=== PATIENT | male | born 1975 | race Caucasian/White ===

== ENCOUNTER 2021-04-08 16:36 | Emergency (ER) | payer MEDICAID ==
[~2021-04-08] VITALS: Ht 175.3 cm; Wt 113.6 kg
[2021-04-08 17:21] LABS: GLUCOSE,POINT OF CARE 232 MG/DL (70-110)
[2021-04-08 22:16] VITALS: BP 129/74
== END 2021-04-08 22:17 | disposition home or self-care (01) ==
LOC: EDBD → EMS 16:40
DX: R41.82 Altered mental status, unspecified (principal); F10.229 Alcohol dependence with intoxication, unspecified; F17.210 Nicotine dependence, cigarettes, uncomplicated; Y90.8 Blood alcohol level of 240 mg/100 ml or more
CPT/HCPCS: 36415; 82962; 99285; G0480; 82948

== ENCOUNTER 2021-04-09 10:39 | Inpatient (IN) | payer MEDICAID ==
[~2021-04-09] VITALS: Ht 172.7 cm; Wt 110.7 kg
[2021-04-09 11:10] LABS: BASOPHILS % (AUTO) 0.5 % (0.0-2.0); EOSINOPHILS % (AUTO) 0.3 % (1.0-6.0); HEMOGLOBIN 13.2 g/dL (13.5-17.5); LYMPHOCYTES # (AUTO) 2.7 K/uL (1.0-4.8); MEAN CORPUSCULAR HEMOGLOBIN 27.3 pg (26.0-34.0); MEAN CORPUSCULAR VOLUME 80 fL (80-100); MONOCYTES # (AUTO) 0.6 K/uL (0.1-1.0); MONOCYTES % (AUTO) 6.4 % (2.0-9.0); NEUTROPHILS # (AUTO) 5.3 K/uL (1.8-7.7); NEUTROPHILS % (AUTO) 61.8 % (40.0-70.0); PLATELET COUNT (AUTO) 321 K/uL (150-450); RED BLOOD CELL COUNT(AUTO) 4.86 MIL/uL (4.50-5.90); RED CELL DISTRIBUTION WIDTH 16.4 % (11.5-14.5)
[2021-04-09 11:19] LABS: ANION GAP 18 mmol/L (8-16); CALCIUM, TOTAL 7.7 mg/dL (8.8-10.5); CARBON DIOXIDE 21 mmol/L (22-29); CHLORIDE 101 mmol/L (98-107); CREATININE 0.57 mg/dL (0.60-1.30); GLOMERULAR FILTR. RATE CALC > 60 mL/min (>60); GLUCOSE,RANDOM 231 mg/dL (70-110); POTASSIUM 3.4 mmol/L (3.5-5.1); SODIUM SERUM 140 mmol/L (136-145); UREA NITROGEN, BLOOD 4 mg/dL (7-18)
[2021-04-09 11:25] LABS: ALANINE AMINOTRANSFERASE 61 U/L (12-78); ALBUMIN 3.3 g/dL (3.4-5.0); ALKALINE PHOSPHATASE 73 U/L (46-116); ASPARTATE AMINOTRANSFERASE 74 U/L (15-37); BILIRUBIN,TOTAL 0.4 mg/dL (0.1-1.0)
[2021-04-09] MEDS ORDERED: POTASSIUM CHLORIDE 10% 40 MEQ/30 ML LIQUID UDCUP PO ONE (15:00)
[2021-04-09 18:10] LABS: COVID AG,FIA SOURCE NASOPHARYNGEAL
[2021-04-09] MEDS ORDERED: LORazepam 2 MG TABLET PO ONE (18:15)
[2021-04-09] MEDS ORDERED: ZOLPIDEM TARTRATE 10 MG TABLET PO PRN (19:00)
[2021-04-09] MEDS ORDERED: LOPERAMIDE HCL 2 MG CAPSULE PO PRN (19:00)
[2021-04-09] MEDS ORDERED: CYANOCOBALAMIN 1,000 MCG/ML VIAL IM ONE (19:00)
[2021-04-09] MEDS ORDERED: HydrOXYzine PAMOATE 50 MG CAPSULE PO PRN (19:00)
[2021-04-09] MEDS ORDERED: LORazepam 2 MG TABLET PO PRN (19:00)
[2021-04-09] MEDS ORDERED: GuaiFENesin/D-METHORPHAN [SUGAR-FREE] 200-20MG/10 ML SYRUP UDCUP PO PRN (19:00)
[2021-04-09] MEDS: THIAMINE 100 MG TABLET PO SCH (20:48)
[2021-04-09] MEDS: LORazepam 2 MG TABLET PO SCH (20:48)
[2021-04-09 22:03] VITALS: BP 151/80
[2021-04-09] MEDS ORDERED: GLUCAGON,HUMAN RECOMBINANT 1 MG VIAL IM PRN (22:30)
[2021-04-09 22:41] LABS: GLUCOMETER DEV NAME(LOC) BV2S.; GLUCOSE,POINT OF CARE 186 MG/DL (70-110)
[2021-04-09] MEDS ORDERED: PNEUMOCOCCAL VACCINE POLYVALENT 0.5 ML VIAL [PPSV23] IM. ONE (22:45)
[2021-04-09 23:06] VITALS: BP 147/86
[2021-04-10] VITALS (9 sets, daily range): BP systolic 116–140; BP diastolic 72–96
[2021-04-10 06:22] LABS: GLUCOMETER DEV NAME(LOC) BV2S.; GLUCOSE,POINT OF CARE 180 MG/DL (70-110)
[2021-04-10] MEDS: MetFORMIN HCL 500 MG TABLET PO SCH ×2 (06:32→16:45)
[2021-04-10] MEDS: INSULIN LISPRO 100 UNITS/ML SQ PRN ×4 (06:33→20:28)
[2021-04-10] MEDS: LORazepam 2 MG TABLET PO PRN (07:15)
[2021-04-10] MEDS ORDERED: VERAPAMIL HCL 120 MG TABLET PO SCH (09:00)
[2021-04-10] MEDS: ASPIRIN 81 MG CHEWABLE TABLET PO SCH (09:02)
[2021-04-10] MEDS: THIAMINE 100 MG TABLET PO SCH ×2 (09:02→16:45)
[2021-04-10] MEDS: OMEPRAZOLE 20 MG CAPSULE PO SCH (09:03)
[2021-04-10] MEDS: MULTIVITAMINS WITH MINERALS, THERAPEUTIC TABLET PO SCH (09:03)
[2021-04-10] MEDS: FOLIC ACID 1 MG TABLET PO SCH (09:03)
[2021-04-10] MEDS: LISINOPRIL 10 MG TABLET PO SCH (09:03)
[2021-04-10] MEDS ORDERED: VERAPAMIL HCL 120 MG ER TABLET PO SCH (09:09)
[2021-04-10] MEDS: VERAPAMIL HCL 120 MG ER TABLET PO SCH (09:39)
[2021-04-10] MEDS ORDERED: QUET300T19 PO (10:53)
[2021-04-10] MEDS ORDERED: MIRT-93 PO (10:53)
[2021-04-10] MEDS ORDERED: LITH300C3 PO (10:53)
[2021-04-10] MEDS: LORazepam 2 MG TABLET PO SCH ×3 (12:03→20:17)
[2021-04-10 13:36] LABS: GLUCOMETER DEV NAME(LOC) BV2S.; GLUCOSE,POINT OF CARE 221 MG/DL (70-110)
[2021-04-10] MEDS: LITHIUM CARBONATE 300 MG CAPSULE PO SCH (16:45)
[2021-04-10 17:06] LABS: GLUCOMETER DEV NAME(LOC) BV2S.; GLUCOSE,POINT OF CARE 263 MG/DL (70-110)
[2021-04-10] MEDS: MIRTAZAPINE 30 MG TABLET PO SCH (20:17)
[2021-04-10] MEDS: SIMVASTATIN 10 MG TABLET PO SCH (20:17)
[2021-04-10] MEDS: QUEtiapine FUMARATE 300 MG TABLET PO SCH (20:17)
[2021-04-10 20:51] LABS: GLUCOMETER DEV NAME(LOC) BV2S.; GLUCOSE,POINT OF CARE 249 MG/DL (70-110)
[2021-04-11 00:42] VITALS: BP 127/75
[2021-04-11] MEDS: LORazepam 2 MG TABLET PO PRN ×2 (00:51→05:07)
[2021-04-11 01:00] VITALS: BP 127/75
[2021-04-11 06:26] LABS: GLUCOMETER DEV NAME(LOC) BV2S.; GLUCOSE,POINT OF CARE 278 MG/DL (70-110)
[2021-04-11] MEDS: INSULIN LISPRO 100 UNITS/ML SQ PRN ×4 (06:31→20:38)
[2021-04-11] MEDS: MetFORMIN HCL 500 MG TABLET PO SCH ×2 (06:31→16:28)
[2021-04-11 08:00] VITALS: BP 145/96
[2021-04-11] MEDS: FOLIC ACID 1 MG TABLET PO SCH (08:59)
[2021-04-11] MEDS: OMEPRAZOLE 20 MG CAPSULE PO SCH (08:59)
[2021-04-11] MEDS: LORazepam 2 MG TABLET PO SCH ×4 (08:59→20:31)
[2021-04-11] MEDS: LITHIUM CARBONATE 300 MG CAPSULE PO SCH ×2 (08:59→16:29)
[2021-04-11] MEDS: ASPIRIN 81 MG CHEWABLE TABLET PO SCH (08:59)
[2021-04-11] MEDS: MULTIVITAMINS WITH MINERALS, THERAPEUTIC TABLET PO SCH (09:00)
[2021-04-11] MEDS: VERAPAMIL HCL 120 MG ER TABLET PO SCH (09:00)
[2021-04-11] MEDS: THIAMINE 100 MG TABLET PO SCH ×2 (09:00→16:28)
[2021-04-11] MEDS: LISINOPRIL 10 MG TABLET PO SCH (09:00)
[2021-04-11 09:21] VITALS: BP 145/96
[2021-04-11] MEDS ORDERED: MAGNESIUM HYDROXIDE SUSPENSION 30 ML UDCUP PO PRN (10:15)
[2021-04-11] MEDS ORDERED: ALBUTEROL SULFATE HFA 90 MCG/PUFF 8 GM INHALER IH PRN (10:15)
[2021-04-11] MEDS ORDERED: DOCUSATE SODIUM 100 MG CAPSULE PO PRN (10:15)
[2021-04-11] MEDS ORDERED: PETROLATUM,WHITE 28 GM JELLY TP PRN (10:15)
[2021-04-11] MEDS ORDERED: MAG HYDROX/AL HYDROX/SIMETH ES 30 ML SUSPENSION UDCUP PO PRN (10:15)
[2021-04-11] MEDS ORDERED: GuaiFENesin/D-METHORPHAN [SUGAR-FREE] 200-20MG/10 ML SYRUP UDCUP PO PRN (10:15)
[2021-04-11] MEDS ORDERED: ONDANSETRON HCL 4 MG TABLET PO PRN (10:15)
[2021-04-11] MEDS ORDERED: CloNIDine HCL 0.1 MG TABLET PO PRN (10:15)
[2021-04-11] MEDS ORDERED: NICOTINE 14 MG/24 HOUR PATCH TD PRN (10:15)
[2021-04-11] MEDS ORDERED: LOPERAMIDE HCL 2 MG CAPSULE PO PRN (10:15)
[2021-04-11] MEDS: IBUPROFEN 400 MG TABLET PO PRN (10:20)
[2021-04-11 11:46] LABS: GLUCOMETER DEV NAME(LOC) BV2S.; GLUCOSE,POINT OF CARE 262 MG/DL (70-110)
[2021-04-11 16:09] VITALS: BP 139/78
[2021-04-11 16:36] LABS: GLUCOMETER DEV NAME(LOC) BV2S.; GLUCOSE,POINT OF CARE 260 MG/DL (70-110)
[2021-04-11 17:10] VITALS: BP 138/78
[2021-04-11] MEDS ORDERED: INSULIN LISPRO 100 UNITS/ML SQ PRN (20:00)
[2021-04-11] MEDS ORDERED: DEXTROSE 50%-WATER 25 GM/50 ML SYRINGE IVP PRN (20:00)
[2021-04-11] MEDS ORDERED: LISI10TA24 PO (20:01)
[2021-04-11] MEDS ORDERED: METF-446 PO (20:01)
[2021-04-11] MEDS ORDERED: INSLAN SQ (20:01)
[2021-04-11] MEDS ORDERED: ALOG25TA2 PO (20:01)
[2021-04-11 20:21] LABS: GLUCOMETER DEV NAME(LOC) BV2S.; GLUCOSE,POINT OF CARE 239 MG/DL (70-110)
[2021-04-11] MEDS: MIRTAZAPINE 30 MG TABLET PO SCH (20:30)
[2021-04-11] MEDS: SIMVASTATIN 10 MG TABLET PO SCH (20:30)
[2021-04-11] MEDS: QUEtiapine FUMARATE 300 MG TABLET PO SCH (20:31)
[2021-04-12] VITALS (7 sets, daily range): BP systolic 119–141; BP diastolic 64–94
[2021-04-12] MEDS: LORazepam 2 MG TABLET PO PRN (00:19)
[2021-04-12] MEDS: IBUPROFEN 400 MG TABLET PO PRN ×2 (00:19→16:18)
[2021-04-12] MEDS: ACETAMINOPHEN 325 MG TABLET PO PRN ×2 (06:05→16:18)
[2021-04-12] MEDS: INSULIN LISPRO 100 UNITS/ML SQ PRN ×4 (06:14→21:53)
[2021-04-12 06:20] LABS: GLUCOMETER DEV NAME(LOC) BV2S.; GLUCOSE,POINT OF CARE 263 MG/DL (70-110)
[2021-04-12] MEDS: MetFORMIN HCL 500 MG TABLET PO SCH ×2 (06:42→16:18)
[2021-04-12] MEDS ORDERED: LORazepam 1 MG TABLET PO PRN (07:00)
[2021-04-12 07:30] LABS: HEMOGLOBIN A1C 10.7 % (3.8-5.6)
[2021-04-12 07:45] LABS: CHOL/HDL RATIO 2.7 (4.2-7.3); THYROID STIMULATING HORMONE 2.17 uIU/mL (0.36-3.74)
[2021-04-12] MEDS: LITHIUM CARBONATE 300 MG CAPSULE PO SCH ×2 (08:41→16:18)
[2021-04-12] MEDS: MULTIVITAMINS WITH MINERALS, THERAPEUTIC TABLET PO SCH (08:41)
[2021-04-12] MEDS: VERAPAMIL HCL 120 MG ER TABLET PO SCH (08:41)
[2021-04-12] MEDS: LORazepam 1 MG TABLET PO SCH ×4 (08:42→20:41)
[2021-04-12] MEDS: LISINOPRIL 10 MG TABLET PO SCH (08:42)
[2021-04-12] MEDS: THIAMINE 100 MG TABLET PO SCH ×2 (08:42→16:18)
[2021-04-12] MEDS: FOLIC ACID 1 MG TABLET PO SCH (08:42)
[2021-04-12] MEDS: ASPIRIN 81 MG CHEWABLE TABLET PO SCH (08:43)
[2021-04-12] MEDS: OMEPRAZOLE 20 MG CAPSULE PO SCH (08:43)
[2021-04-12 11:51] LABS: GLUCOMETER DEV NAME(LOC) BV2S.; GLUCOSE,POINT OF CARE 233 MG/DL (70-110)
[2021-04-12 16:46] LABS: GLUCOMETER DEV NAME(LOC) BV2S.; GLUCOSE,POINT OF CARE 270 MG/DL (70-110)
[2021-04-12] MEDS: MIRTAZAPINE 30 MG TABLET PO SCH (20:41)
[2021-04-12] MEDS: SIMVASTATIN 10 MG TABLET PO SCH (20:41)
[2021-04-12] MEDS: QUEtiapine FUMARATE 300 MG TABLET PO SCH (20:41)
[2021-04-12 21:56] LABS: GLUCOMETER DEV NAME(LOC) BV2S.; GLUCOSE,POINT OF CARE 235 MG/DL (70-110)
[2021-04-13 00:17] VITALS: BP 110/80
[2021-04-13] MEDS: IBUPROFEN 400 MG TABLET PO PRN ×2 (00:23→09:05)
[2021-04-13] MEDS: LORazepam 2 MG TABLET PO PRN ×3 (00:23→13:12)
[2021-04-13 01:27] VITALS: BP 110/80
[2021-04-13] MEDS: INSULIN LISPRO 100 UNITS/ML SQ PRN ×4 (06:45→20:43)
[2021-04-13] MEDS: MetFORMIN HCL 500 MG TABLET PO SCH ×2 (06:47→16:30)
[2021-04-13 06:51] LABS: GLUCOMETER DEV NAME(LOC) BV2S.; GLUCOSE,POINT OF CARE 230 MG/DL (70-110)
[2021-04-13 07:24] LABS: APPEARANCE,URINE CLEAR (CLEAR); BILIRUBIN,URINE NEGATIVE (NEGATIVE); GLUCOSE, URINE (UA) >=1000 mg/dL (NEGATIVE); KETONES,URINE NEGATIVE (NEGATIVE); LEUKOCYTE ESTERASE ,URINE NEGATIVE (NEGATIVE); NITRATE,URINE NEGATIVE (NEGATIVE); OCCULT BLOOD,URINE NEGATIVE (NEGATIVE); PROTEIN,URINE NEGATIVE (NEGATIVE)
[2021-04-13 07:35] LABS: AMPHET/METH SCREEN,URINE NEGATIVE (NEGATIVE); BARBITURATE SCREEN, URINE NEGATIVE (NEGATIVE); BENZODIAZEPINES SCREEN,URINE POSITIVE (NEGATIVE); CANNABINOID SCREEN,URINE NEGATIVE (NEGATIVE); COCAINE SCREEN,URINE NEGATIVE (NEGATIVE); METHADONE SCREEN, URINE NEGATIVE (NEGATIVE); OPIATE SCREEN,URINE NEGATIVE (NEGATIVE)
[2021-04-13 07:41] LABS: PHENCYCLIDINE SCREEN,URINE NEGATIVE (NEGATIVE)
[2021-04-13 07:44] LABS: BACTERIA,URINE None Seen /HPF (None Seen); RBC,URINE None Seen /HPF (0-2); WBC,URINE None Seen /HPF (0-5)
[2021-04-13 08:09] VITALS: BP 119/64
[2021-04-13 08:37] VITALS: BP 119/64
[2021-04-13] MEDS: LITHIUM CARBONATE 300 MG CAPSULE PO SCH ×2 (09:06→16:30)
[2021-04-13] MEDS: LISINOPRIL 10 MG TABLET PO SCH (09:06)
[2021-04-13] MEDS: OMEPRAZOLE 20 MG CAPSULE PO SCH (09:06)
[2021-04-13] MEDS: ASPIRIN 81 MG CHEWABLE TABLET PO SCH (09:07)
[2021-04-13] MEDS: VERAPAMIL HCL 120 MG ER TABLET PO SCH (09:07)
[2021-04-13] MEDS: FOLIC ACID 1 MG TABLET PO SCH (09:07)
[2021-04-13] MEDS: THIAMINE 100 MG TABLET PO SCH ×2 (09:07→16:29)
[2021-04-13] MEDS: MULTIVITAMINS WITH MINERALS, THERAPEUTIC TABLET PO SCH (09:08)
[2021-04-13 12:41] LABS: GLUCOMETER DEV NAME(LOC) BV2S.; GLUCOSE,POINT OF CARE 266 MG/DL (70-110)
[2021-04-13 16:05] VITALS: BP 128/84
[2021-04-13 16:29] VITALS: BP 128/84
[2021-04-13 16:36] LABS: GLUCOMETER DEV NAME(LOC) BV2S.; GLUCOSE,POINT OF CARE 244 MG/DL (70-110)
[2021-04-13] MEDS: LORazepam 1 MG TABLET PO PRN (18:40)
[2021-04-13] MEDS: SIMVASTATIN 10 MG TABLET PO SCH (20:30)
[2021-04-13 20:31] LABS: GLUCOMETER DEV NAME(LOC) BV2S.; GLUCOSE,POINT OF CARE 287 MG/DL (70-110)
[2021-04-13] MEDS: MIRTAZAPINE 30 MG TABLET PO SCH (20:31)
[2021-04-13] MEDS: QUEtiapine FUMARATE 300 MG TABLET PO SCH (20:31)
[2021-04-14 00:55] VITALS: BP 115/87
[2021-04-14] MEDS: LORazepam 1 MG TABLET PO PRN ×2 (01:10→06:45)
[2021-04-14] MEDS: IBUPROFEN 400 MG TABLET PO PRN ×2 (01:10→13:37)
[2021-04-14 06:20] VITALS: BP 125/88
[2021-04-14 06:36] LABS: GLUCOMETER DEV NAME(LOC) BV2S.; GLUCOSE,POINT OF CARE 277 MG/DL (70-110)
[2021-04-14] MEDS: INSULIN LISPRO 100 UNITS/ML SQ PRN ×4 (06:44→21:05)
[2021-04-14] MEDS: MetFORMIN HCL 500 MG TABLET PO SCH ×2 (06:45→16:31)
[2021-04-14] MEDS: ACETAMINOPHEN 325 MG TABLET PO PRN (06:46)
[2021-04-14 08:11] VITALS: BP 138/87
[2021-04-14] MEDS: ASPIRIN 81 MG CHEWABLE TABLET PO SCH (08:25)
[2021-04-14] MEDS: THIAMINE 100 MG TABLET PO SCH ×2 (08:25→16:31)
[2021-04-14] MEDS: LITHIUM CARBONATE 300 MG CAPSULE PO SCH ×2 (08:25→16:31)
[2021-04-14] MEDS: OMEPRAZOLE 20 MG CAPSULE PO SCH (08:25)
[2021-04-14] MEDS: FOLIC ACID 1 MG TABLET PO SCH (08:26)
[2021-04-14] MEDS: LISINOPRIL 10 MG TABLET PO SCH (08:26)
[2021-04-14] MEDS: VERAPAMIL HCL 120 MG ER TABLET PO SCH (08:26)
[2021-04-14] MEDS: MULTIVITAMINS WITH MINERALS, THERAPEUTIC TABLET PO SCH (08:26)
[2021-04-14 10:09] VITALS: BP 132/87
[2021-04-14 10:16] LABS: GLUCOMETER DEV NAME(LOC) POC.BV
[2021-04-14] MEDS: LORazepam 2 MG TABLET PO PRN ×3 (11:25→20:38)
[2021-04-14 11:36] LABS: GLUCOMETER DEV NAME(LOC) BV2S.; GLUCOSE,POINT OF CARE 284 MG/DL (70-110)
[2021-04-14 16:07] VITALS: BP 114/69
[2021-04-14 16:46] LABS: GLUCOMETER DEV NAME(LOC) BV2S.; GLUCOSE,POINT OF CARE 285 MG/DL (70-110)
[2021-04-14] MEDS: QUEtiapine FUMARATE 300 MG TABLET PO SCH (20:33)
[2021-04-14] MEDS: SIMVASTATIN 10 MG TABLET PO SCH (20:33)
[2021-04-14] MEDS: MIRTAZAPINE 30 MG TABLET PO SCH (20:33)
[2021-04-14 21:17] LABS: GLUCOMETER DEV NAME(LOC) BV2S.; GLUCOSE,POINT OF CARE 261 MG/DL (70-110)
[2021-04-15 00:29] VITALS: BP 124/77
[2021-04-15] MEDS: IBUPROFEN 400 MG TABLET PO PRN ×2 (03:58→13:45)
[2021-04-15] MEDS: LORazepam 2 MG TABLET PO PRN ×4 (03:58→18:37)
[2021-04-15 06:16] LABS: GLUCOMETER DEV NAME(LOC) BV2S.; GLUCOSE,POINT OF CARE 282 MG/DL (70-110)
[2021-04-15] MEDS: MetFORMIN HCL 500 MG TABLET PO SCH ×2 (06:50→16:43)
[2021-04-15] MEDS: INSULIN LISPRO 100 UNITS/ML SQ PRN ×4 (06:51→20:38)
[2021-04-15] MEDS: LISINOPRIL 10 MG TABLET PO SCH (08:34)
[2021-04-15] MEDS: LITHIUM CARBONATE 300 MG CAPSULE PO SCH ×2 (08:34→16:43)
[2021-04-15] MEDS: FOLIC ACID 1 MG TABLET PO SCH (08:34)
[2021-04-15] MEDS: ASPIRIN 81 MG CHEWABLE TABLET PO SCH (08:34)
[2021-04-15] MEDS: MULTIVITAMINS WITH MINERALS, THERAPEUTIC TABLET PO SCH (08:35)
[2021-04-15] MEDS: VERAPAMIL HCL 120 MG ER TABLET PO SCH (08:35)
[2021-04-15] MEDS: OMEPRAZOLE 20 MG CAPSULE PO SCH (08:35)
[2021-04-15] MEDS: THIAMINE 100 MG TABLET PO SCH ×2 (08:35→16:43)
[2021-04-15 08:55] VITALS: BP 122/82
[2021-04-15 11:46] LABS: GLUCOMETER DEV NAME(LOC) BV2S.; GLUCOSE,POINT OF CARE 306 MG/DL (70-110)
[2021-04-15 16:28] VITALS: BP 120/78
[2021-04-15 17:32] LABS: GLUCOMETER DEV NAME(LOC) BV2S.; GLUCOSE,POINT OF CARE 349 MG/DL (70-110)
[2021-04-15] MEDS: ACETAMINOPHEN 325 MG TABLET PO PRN (18:38)
[2021-04-15] MEDS: QUEtiapine FUMARATE 300 MG TABLET PO SCH (20:22)
[2021-04-15] MEDS: MIRTAZAPINE 30 MG TABLET PO SCH (20:22)
[2021-04-15] MEDS: SIMVASTATIN 10 MG TABLET PO SCH (20:22)
[2021-04-15 20:56] LABS: GLUCOMETER DEV NAME(LOC) BV2S.; GLUCOSE,POINT OF CARE 282 MG/DL (70-110)
[2021-04-16 02:19] VITALS: BP 137/86
[2021-04-16] MEDS: LORazepam 2 MG TABLET PO PRN ×4 (04:50→22:26)
[2021-04-16] MEDS: MetFORMIN HCL 500 MG TABLET PO SCH ×2 (06:08→16:50)
[2021-04-16] MEDS: INSULIN LISPRO 100 UNITS/ML SQ PRN ×4 (06:09→20:31)
[2021-04-16 06:12] LABS: GLUCOMETER DEV NAME(LOC) BV2S.; GLUCOSE,POINT OF CARE 257 MG/DL (70-110)
[2021-04-16] MEDS: LITHIUM CARBONATE 300 MG CAPSULE PO SCH ×2 (08:33→16:50)
[2021-04-16] MEDS: OMEPRAZOLE 20 MG CAPSULE PO SCH (08:34)
[2021-04-16] MEDS: THIAMINE 100 MG TABLET PO SCH ×2 (08:34→16:50)
[2021-04-16] MEDS: FOLIC ACID 1 MG TABLET PO SCH (08:34)
[2021-04-16] MEDS: ASPIRIN 81 MG CHEWABLE TABLET PO SCH (08:34)
[2021-04-16] MEDS: MULTIVITAMINS WITH MINERALS, THERAPEUTIC TABLET PO SCH (08:34)
[2021-04-16] MEDS: VERAPAMIL HCL 120 MG ER TABLET PO SCH (08:34)
[2021-04-16] MEDS: LISINOPRIL 10 MG TABLET PO SCH (08:34)
[2021-04-16 08:37] VITALS: BP 120/71
[2021-04-16 11:56] LABS: GLUCOMETER DEV NAME(LOC) BV2S.; GLUCOSE,POINT OF CARE 269 MG/DL (70-110)
[2021-04-16] MEDS: HALOPERIDOL 5 MG TABLET PO PRN (13:45)
[2021-04-16 16:22] VITALS: BP 121/73
[2021-04-16 17:01] LABS: GLUCOMETER DEV NAME(LOC) BV2S.; GLUCOSE,POINT OF CARE 304 MG/DL (70-110)
[2021-04-16] MEDS: MIRTAZAPINE 30 MG TABLET PO SCH (20:17)
[2021-04-16] MEDS: QUEtiapine FUMARATE 300 MG TABLET PO SCH (20:18)
[2021-04-16] MEDS: SIMVASTATIN 10 MG TABLET PO SCH (20:18)
[2021-04-16 20:56] LABS: GLUCOMETER DEV NAME(LOC) BV2S.; GLUCOSE,POINT OF CARE 315 MG/DL (70-110)
[2021-04-17 05:52] LABS: GLUCOMETER DEV NAME(LOC) BV2S.; GLUCOSE,POINT OF CARE 250 MG/DL (70-110)
[2021-04-17 06:01] VITALS: BP 124/86
[2021-04-17] MEDS: MetFORMIN HCL 500 MG TABLET PO SCH ×2 (06:06→16:33)
[2021-04-17] MEDS: INSULIN LISPRO 100 UNITS/ML SQ PRN ×4 (06:06→20:43)
[2021-04-17] MEDS: LORazepam 2 MG TABLET PO PRN ×4 (06:06→20:18)
[2021-04-17] MEDS: ACETAMINOPHEN 325 MG TABLET PO PRN ×2 (06:06→16:33)
[2021-04-17] MEDS: VERAPAMIL HCL 120 MG ER TABLET PO SCH (08:16)
[2021-04-17] MEDS: LITHIUM CARBONATE 300 MG CAPSULE PO SCH ×2 (08:17→16:33)
[2021-04-17] MEDS: FOLIC ACID 1 MG TABLET PO SCH (08:17)
[2021-04-17] MEDS: ASPIRIN 81 MG CHEWABLE TABLET PO SCH (08:17)
[2021-04-17] MEDS: MULTIVITAMINS WITH MINERALS, THERAPEUTIC TABLET PO SCH (08:17)
[2021-04-17] MEDS: THIAMINE 100 MG TABLET PO SCH ×2 (08:17→16:33)
[2021-04-17] MEDS: LISINOPRIL 10 MG TABLET PO SCH (08:17)
[2021-04-17] MEDS: OMEPRAZOLE 20 MG CAPSULE PO SCH (08:17)
[2021-04-17 08:29] VITALS: BP 122/74
[2021-04-17 11:26] LABS: GLUCOMETER DEV NAME(LOC) BV2S.; GLUCOSE,POINT OF CARE 262 MG/DL (70-110)
[2021-04-17 16:02] VITALS: BP 114/73
[2021-04-17 16:45] LABS: GLUCOMETER DEV NAME(LOC) BV2S.; GLUCOSE,POINT OF CARE 280 MG/DL (70-110)
[2021-04-17 20:21] VITALS: BP 128/82
[2021-04-17] MEDS: IBUPROFEN 400 MG TABLET PO PRN (20:21)
[2021-04-17 20:31] LABS: GLUCOMETER DEV NAME(LOC) BV2S.; GLUCOSE,POINT OF CARE 308 MG/DL (70-110)
[2021-04-17] MEDS: MIRTAZAPINE 30 MG TABLET PO SCH (20:38)
[2021-04-17] MEDS: SIMVASTATIN 10 MG TABLET PO SCH (20:38)
[2021-04-17] MEDS: QUEtiapine FUMARATE 300 MG TABLET PO SCH (20:38)
[2021-04-18] MEDS: LORazepam 2 MG TABLET PO PRN ×4 (06:19→20:54)
[2021-04-18] MEDS: ACETAMINOPHEN 325 MG TABLET PO PRN (06:19)
[2021-04-18 06:26] LABS: GLUCOMETER DEV NAME(LOC) BV2S.; GLUCOSE,POINT OF CARE 259 MG/DL (70-110)
[2021-04-18 06:35] VITALS: BP 128/83
[2021-04-18] MEDS: MetFORMIN HCL 500 MG TABLET PO SCH ×2 (06:55→16:35)
[2021-04-18] MEDS: INSULIN LISPRO 100 UNITS/ML SQ PRN ×4 (06:58→20:44)
[2021-04-18 08:35] VITALS: BP 124/67
[2021-04-18] MEDS: LISINOPRIL 10 MG TABLET PO SCH (09:17)
[2021-04-18] MEDS: MULTIVITAMINS WITH MINERALS, THERAPEUTIC TABLET PO SCH (09:17)
[2021-04-18] MEDS: OMEPRAZOLE 20 MG CAPSULE PO SCH (09:17)
[2021-04-18] MEDS: VERAPAMIL HCL 120 MG ER TABLET PO SCH (09:17)
[2021-04-18] MEDS: ASPIRIN 81 MG CHEWABLE TABLET PO SCH (09:18)
[2021-04-18] MEDS: FOLIC ACID 1 MG TABLET PO SCH (09:18)
[2021-04-18] MEDS: LITHIUM CARBONATE 300 MG CAPSULE PO SCH ×2 (09:18→16:35)
[2021-04-18] MEDS: THIAMINE 100 MG TABLET PO SCH ×2 (09:18→16:35)
[2021-04-18] MEDS: IBUPROFEN 400 MG TABLET PO PRN (10:24)
[2021-04-18 11:36] LABS: GLUCOMETER DEV NAME(LOC) BV2S.; GLUCOSE,POINT OF CARE 264 MG/DL (70-110)
[2021-04-18 16:16] LABS: GLUCOMETER DEV NAME(LOC) BV2S.; GLUCOSE,POINT OF CARE 294 MG/DL (70-110)
[2021-04-18 16:29] VITALS: BP 113/73
[2021-04-18] MEDS: SIMVASTATIN 10 MG TABLET PO SCH (20:31)
[2021-04-18] MEDS: MIRTAZAPINE 30 MG TABLET PO SCH (20:31)
[2021-04-18] MEDS: QUEtiapine FUMARATE 300 MG TABLET PO SCH (20:31)
[2021-04-18 20:41] LABS: GLUCOMETER DEV NAME(LOC) BV2S.; GLUCOSE,POINT OF CARE 269 MG/DL (70-110)
[2021-04-19 02:14] VITALS: BP 126/75
[2021-04-19 06:16] LABS: GLUCOMETER DEV NAME(LOC) BV2S.; GLUCOSE,POINT OF CARE 255 MG/DL (70-110)
[2021-04-19] MEDS: MetFORMIN HCL 500 MG TABLET PO SCH ×2 (06:27→16:05)
[2021-04-19] MEDS: GlipiZIDE 5 MG TABLET PO SCH (06:27)
[2021-04-19] MEDS: INSULIN LISPRO 100 UNITS/ML SQ PRN ×4 (06:28→20:56)
[2021-04-19] MEDS: LORazepam 2 MG TABLET PO PRN ×4 (06:28→20:11)
[2021-04-19] MEDS: IBUPROFEN 400 MG TABLET PO PRN (06:29)
[2021-04-19 08:50] VITALS: BP 146/87
[2021-04-19] MEDS: LITHIUM CARBONATE 300 MG CAPSULE PO SCH ×2 (08:50→16:05)
[2021-04-19] MEDS: THIAMINE 100 MG TABLET PO SCH (08:50)
[2021-04-19] MEDS: VERAPAMIL HCL 120 MG ER TABLET PO SCH (08:50)
[2021-04-19] MEDS: OMEPRAZOLE 20 MG CAPSULE PO SCH (08:50)
[2021-04-19] MEDS: ASPIRIN 81 MG CHEWABLE TABLET PO SCH (08:50)
[2021-04-19] MEDS: MULTIVITAMINS WITH MINERALS, THERAPEUTIC TABLET PO SCH (08:50)
[2021-04-19] MEDS: FOLIC ACID 1 MG TABLET PO SCH (08:50)
[2021-04-19] MEDS: LISINOPRIL 10 MG TABLET PO SCH (08:50)
[2021-04-19 12:36] LABS: GLUCOMETER DEV NAME(LOC) BV2S.; GLUCOSE,POINT OF CARE 256 MG/DL (70-110)
[2021-04-19] MEDS: ACETAMINOPHEN 325 MG TABLET PO PRN (16:05)
[2021-04-19 16:34] VITALS: BP 106/64
[2021-04-19 16:36] LABS: GLUCOMETER DEV NAME(LOC) BV2S.; GLUCOSE,POINT OF CARE 301 MG/DL (70-110)
[2021-04-19 16:40] VITALS: BP 110/84
[2021-04-19] MEDS: SIMVASTATIN 10 MG TABLET PO SCH (20:09)
[2021-04-19] MEDS: MIRTAZAPINE 30 MG TABLET PO SCH (20:09)
[2021-04-19] MEDS: QUEtiapine FUMARATE 300 MG TABLET PO SCH (20:09)
[2021-04-19] MEDS: HALOPERIDOL 5 MG TABLET PO PRN (20:13)
[2021-04-19 20:51] LABS: GLUCOMETER DEV NAME(LOC) BV2S.; GLUCOSE,POINT OF CARE 254 MG/DL (70-110)
[2021-04-20 01:06] VITALS: BP 125/77
[2021-04-20 06:16] LABS: GLUCOMETER DEV NAME(LOC) BV2S.; GLUCOSE,POINT OF CARE 241 MG/DL (70-110)
[2021-04-20 06:20] VITALS: BP 126/80
[2021-04-20] MEDS: GlipiZIDE 5 MG TABLET PO SCH (06:21)
[2021-04-20] MEDS: MetFORMIN HCL 500 MG TABLET PO SCH ×2 (06:21→16:34)
[2021-04-20] MEDS: INSULIN LISPRO 100 UNITS/ML SQ PRN ×4 (06:22→20:54)
[2021-04-20] MEDS: LORazepam 2 MG TABLET PO PRN ×4 (06:34→20:08)
[2021-04-20] MEDS: IBUPROFEN 400 MG TABLET PO PRN ×2 (06:34→14:49)
[2021-04-20 08:33] VITALS: BP 100/76
[2021-04-20] MEDS: LISINOPRIL 10 MG TABLET PO SCH (10:16)
[2021-04-20] MEDS: ASPIRIN 81 MG CHEWABLE TABLET PO SCH (10:16)
[2021-04-20] MEDS: VERAPAMIL HCL 120 MG ER TABLET PO SCH (10:16)
[2021-04-20] MEDS: OMEPRAZOLE 20 MG CAPSULE PO SCH (10:16)
[2021-04-20] MEDS: MULTIVITAMINS WITH MINERALS, THERAPEUTIC TABLET PO SCH (10:16)
[2021-04-20] MEDS: LITHIUM CARBONATE 300 MG CAPSULE PO SCH ×2 (10:16→16:34)
[2021-04-20 10:46] LABS: GLUCOMETER DEV NAME(LOC) BV2S.; GLUCOSE,POINT OF CARE 293 MG/DL (70-110)
[2021-04-20 16:18] VITALS: BP 108/62
[2021-04-20 16:21] LABS: GLUCOMETER DEV NAME(LOC) BV2S.; GLUCOSE,POINT OF CARE 293 MG/DL (70-110)
[2021-04-20] MEDS: HALOPERIDOL 5 MG TABLET PO PRN (16:52)
[2021-04-20 20:21] LABS: GLUCOMETER DEV NAME(LOC) BV2S.; GLUCOSE,POINT OF CARE 340 MG/DL (70-110)
[2021-04-20] MEDS: QUEtiapine FUMARATE 300 MG TABLET PO SCH (20:47)
[2021-04-20] MEDS: MIRTAZAPINE 30 MG TABLET PO SCH (20:47)
[2021-04-20] MEDS: SIMVASTATIN 10 MG TABLET PO SCH (20:47)
[2021-04-21 01:14] VITALS: BP 107/71
[2021-04-21] MEDS: INSULIN LISPRO 100 UNITS/ML SQ PRN ×4 (06:22→21:04)
[2021-04-21] MEDS: MetFORMIN HCL 500 MG TABLET PO SCH ×2 (06:22→16:55)
[2021-04-21] MEDS: LORazepam 2 MG TABLET PO PRN ×4 (06:22→20:22)
[2021-04-21] MEDS: GlipiZIDE 5 MG TABLET PO SCH (06:22)
[2021-04-21] MEDS: IBUPROFEN 400 MG TABLET PO PRN ×2 (06:23→15:06)
[2021-04-21 06:26] LABS: GLUCOMETER DEV NAME(LOC) BV2S.; GLUCOSE,POINT OF CARE 266 MG/DL (70-110)
[2021-04-21] MEDS: MULTIVITAMINS WITH MINERALS, THERAPEUTIC TABLET PO SCH (08:30)
[2021-04-21] MEDS: LISINOPRIL 10 MG TABLET PO SCH (08:30)
[2021-04-21] MEDS: ASPIRIN 81 MG CHEWABLE TABLET PO SCH (08:30)
[2021-04-21] MEDS: OMEPRAZOLE 20 MG CAPSULE PO SCH (08:31)
[2021-04-21] MEDS: LITHIUM CARBONATE 300 MG CAPSULE PO SCH ×2 (08:31→16:55)
[2021-04-21] MEDS: VERAPAMIL HCL 120 MG ER TABLET PO SCH (08:31)
[2021-04-21 08:34] VITALS: BP 113/64
[2021-04-21] MEDS: ACETAMINOPHEN 325 MG TABLET PO PRN (10:23)
[2021-04-21 10:46] LABS: GLUCOMETER DEV NAME(LOC) POC.BV
[2021-04-21 11:46] LABS: GLUCOMETER DEV NAME(LOC) BV2S.; GLUCOSE,POINT OF CARE 269 MG/DL (70-110)
[2021-04-21 16:11] VITALS: BP 107/70
[2021-04-21 17:16] LABS: GLUCOMETER DEV NAME(LOC) BV2S.; GLUCOSE,POINT OF CARE 297 MG/DL (70-110)
[2021-04-21] MEDS: QUEtiapine FUMARATE 300 MG TABLET PO SCH (20:22)
[2021-04-21] MEDS: MIRTAZAPINE 30 MG TABLET PO SCH (20:22)
[2021-04-21] MEDS: HALOPERIDOL 5 MG TABLET PO PRN (20:22)
[2021-04-21] MEDS: SIMVASTATIN 10 MG TABLET PO SCH (20:22)
[2021-04-21 20:41] LABS: GLUCOMETER DEV NAME(LOC) BV2S.; GLUCOSE,POINT OF CARE 307 MG/DL (70-110)
[2021-04-22 00:41] VITALS: BP 124/77
[2021-04-22 06:31] LABS: GLUCOMETER DEV NAME(LOC) BV2S.; GLUCOSE,POINT OF CARE 264 MG/DL (70-110)
[2021-04-22] MEDS: GlipiZIDE 5 MG TABLET PO SCH (06:37)
[2021-04-22] MEDS: IBUPROFEN 400 MG TABLET PO PRN ×2 (06:38→14:40)
[2021-04-22] MEDS: LORazepam 2 MG TABLET PO PRN ×4 (06:38→20:01)
[2021-04-22] MEDS: MetFORMIN HCL 500 MG TABLET PO SCH ×2 (06:38→16:51)
[2021-04-22] MEDS: INSULIN LISPRO 100 UNITS/ML SQ PRN ×4 (06:40→21:00)
[2021-04-22] MEDS: LITHIUM CARBONATE 300 MG CAPSULE PO SCH ×2 (08:22→16:51)
[2021-04-22] MEDS: OMEPRAZOLE 20 MG CAPSULE PO SCH (08:22)
[2021-04-22] MEDS: ASPIRIN 81 MG CHEWABLE TABLET PO SCH (08:22)
[2021-04-22] MEDS: LISINOPRIL 10 MG TABLET PO SCH (08:22)
[2021-04-22] MEDS: MULTIVITAMINS WITH MINERALS, THERAPEUTIC TABLET PO SCH (08:22)
[2021-04-22] MEDS: VERAPAMIL HCL 120 MG ER TABLET PO SCH (08:22)
[2021-04-22] MEDS: ACETAMINOPHEN 325 MG TABLET PO PRN (10:40)
[2021-04-22 11:47] LABS: GLUCOMETER DEV NAME(LOC) BV2S.; GLUCOSE,POINT OF CARE 274 MG/DL (70-110)
[2021-04-22 14:13] VITALS: BP 114/70
[2021-04-22 16:40] VITALS: BP 98/64
[2021-04-22 17:12] LABS: GLUCOMETER DEV NAME(LOC) BV2S.; GLUCOSE,POINT OF CARE 311 MG/DL (70-110)
[2021-04-22] MEDS: MIRTAZAPINE 30 MG TABLET PO SCH (20:02)
[2021-04-22] MEDS: QUEtiapine FUMARATE 300 MG TABLET PO SCH (20:02)
[2021-04-22] MEDS: SIMVASTATIN 10 MG TABLET PO SCH (20:02)
[2021-04-22 21:16] LABS: GLUCOMETER DEV NAME(LOC) BV2S.; GLUCOSE,POINT OF CARE 312 MG/DL (70-110)
[2021-04-23 05:55] VITALS: BP 117/85
[2021-04-23] MEDS: INSULIN LISPRO 100 UNITS/ML SQ PRN ×4 (06:09→20:09)
[2021-04-23 06:11] LABS: GLUCOMETER DEV NAME(LOC) BV2S.; GLUCOSE,POINT OF CARE 244 MG/DL (70-110)
[2021-04-23] MEDS: IBUPROFEN 400 MG TABLET PO PRN ×2 (06:15→15:04)
[2021-04-23] MEDS: GlipiZIDE 5 MG TABLET PO SCH (06:19)
[2021-04-23] MEDS: MetFORMIN HCL 500 MG TABLET PO SCH ×2 (06:20→16:08)
[2021-04-23] MEDS: LORazepam 2 MG TABLET PO PRN ×4 (06:50→19:56)
[2021-04-23 08:20] VITALS: BP 109/69
[2021-04-23] MEDS: ASPIRIN 81 MG CHEWABLE TABLET PO SCH (08:49)
[2021-04-23] MEDS: LISINOPRIL 10 MG TABLET PO SCH (08:49)
[2021-04-23] MEDS: LITHIUM CARBONATE 300 MG CAPSULE PO SCH ×2 (08:49→16:08)
[2021-04-23] MEDS: OMEPRAZOLE 20 MG CAPSULE PO SCH (08:49)
[2021-04-23] MEDS: MULTIVITAMINS WITH MINERALS, THERAPEUTIC TABLET PO SCH (08:49)
[2021-04-23] MEDS: VERAPAMIL HCL 120 MG ER TABLET PO SCH (08:49)
[2021-04-23] MEDS: ACETAMINOPHEN 325 MG TABLET PO PRN (11:02)
[2021-04-23 11:17] LABS: GLUCOMETER DEV NAME(LOC) BV2S.; GLUCOSE,POINT OF CARE 356 MG/DL (70-110)
[2021-04-23 16:21] VITALS: BP 114/66
[2021-04-23 16:46] LABS: GLUCOMETER DEV NAME(LOC) BV2S.; GLUCOSE,POINT OF CARE 325 MG/DL (70-110)
[2021-04-23] MEDS: QUEtiapine FUMARATE 300 MG TABLET PO SCH (20:07)
[2021-04-23] MEDS: MIRTAZAPINE 30 MG TABLET PO SCH (20:08)
[2021-04-23] MEDS: SIMVASTATIN 10 MG TABLET PO SCH (20:08)
[2021-04-23 21:36] LABS: GLUCOMETER DEV NAME(LOC) BV2S.; GLUCOSE,POINT OF CARE 292 MG/DL (70-110)
[2021-04-24 00:37] VITALS: BP 137/75
[2021-04-24 03:36] VITALS: BP 137/75
[2021-04-24] MEDS: IBUPROFEN 400 MG TABLET PO PRN ×2 (03:43→15:25)
[2021-04-24 06:11] LABS: GLUCOMETER DEV NAME(LOC) BV2S.; GLUCOSE,POINT OF CARE 257 MG/DL (70-110)
[2021-04-24] MEDS: GlipiZIDE 5 MG TABLET PO SCH (06:12)
[2021-04-24] MEDS: MetFORMIN HCL 500 MG TABLET PO SCH ×2 (06:13→16:50)
[2021-04-24] MEDS: INSULIN LISPRO 100 UNITS/ML SQ PRN ×4 (06:13→21:12)
[2021-04-24] MEDS: LORazepam 2 MG TABLET PO PRN ×4 (06:52→19:34)
[2021-04-24] MEDS: LITHIUM CARBONATE 300 MG CAPSULE PO SCH ×2 (08:03→16:50)
[2021-04-24] MEDS: VERAPAMIL HCL 120 MG ER TABLET PO SCH (08:03)
[2021-04-24] MEDS: MULTIVITAMINS WITH MINERALS, THERAPEUTIC TABLET PO SCH (08:03)
[2021-04-24] MEDS: OMEPRAZOLE 20 MG CAPSULE PO SCH (08:03)
[2021-04-24] MEDS: ASPIRIN 81 MG CHEWABLE TABLET PO SCH (08:03)
[2021-04-24] MEDS: LISINOPRIL 10 MG TABLET PO SCH (08:04)
[2021-04-24 08:19] VITALS: BP 130/78
[2021-04-24] MEDS: ACETAMINOPHEN 325 MG TABLET PO PRN ×2 (10:57→20:02)
[2021-04-24 11:16] LABS: GLUCOMETER DEV NAME(LOC) BV2S.; GLUCOSE,POINT OF CARE 308 MG/DL (70-110)
[2021-04-24 15:20] VITALS: BP 114/72
[2021-04-24 16:14] VITALS: BP 109/68
[2021-04-24 17:07] LABS: GLUCOMETER DEV NAME(LOC) BV2S.; GLUCOSE,POINT OF CARE 235 MG/DL (70-110)
[2021-04-24 20:01] VITALS: BP 111/72
[2021-04-24] MEDS: SIMVASTATIN 10 MG TABLET PO SCH (20:02)
[2021-04-24] MEDS: MIRTAZAPINE 30 MG TABLET PO SCH (20:02)
[2021-04-24] MEDS: QUEtiapine FUMARATE 300 MG TABLET PO SCH (20:02)
[2021-04-24 21:21] LABS: GLUCOMETER DEV NAME(LOC) BV2S.; GLUCOSE,POINT OF CARE 311 MG/DL (70-110)
[2021-04-25 00:43] VITALS: BP 119/70
[2021-04-25] MEDS: IBUPROFEN 400 MG TABLET PO PRN (05:18)
[2021-04-25] MEDS: GlipiZIDE 5 MG TABLET PO SCH (06:11)
[2021-04-25] MEDS: MetFORMIN HCL 500 MG TABLET PO SCH (06:11)
[2021-04-25] MEDS: INSULIN LISPRO 100 UNITS/ML SQ PRN (06:11)
[2021-04-25 06:46] LABS: GLUCOMETER DEV NAME(LOC) BV2S.; GLUCOSE,POINT OF CARE 254 MG/DL (70-110)
[2021-04-25] MEDS: MULTIVITAMINS WITH MINERALS, THERAPEUTIC TABLET PO SCH (08:13)
[2021-04-25] MEDS: ASPIRIN 81 MG CHEWABLE TABLET PO SCH (08:13)
[2021-04-25] MEDS: LITHIUM CARBONATE 300 MG CAPSULE PO SCH (08:13)
[2021-04-25] MEDS: OMEPRAZOLE 20 MG CAPSULE PO SCH (08:13)
[2021-04-25] MEDS: LISINOPRIL 10 MG TABLET PO SCH (08:13)
[2021-04-25] MEDS: VERAPAMIL HCL 120 MG ER TABLET PO SCH (08:13)
[2021-04-25 08:23] VITALS: BP 124/71
[2021-04-25] MEDS ORDERED: SIMV-259 PO (08:56)
[2021-04-25] MEDS ORDERED: GLIP5 PO (08:57)
[2021-04-25] MEDS ORDERED: VERA120T91 PO (08:58)
[2021-04-25] MEDS ORDERED: ASPI-1444 PO (08:58)
[2021-04-25] MEDS ORDERED: OMEP20 PO (08:59)
[2021-04-25] MEDS ORDERED: LITH300C3 PO (10:42)
[2021-04-25] MEDS ORDERED: QUET300T19 PO (10:42)
[2021-04-25] MEDS ORDERED: MIRT30 PO (10:42)
== END 2021-04-25 09:45 | DRG 750 ==
LOC: EMS 10:39 → EDBD 19:52 → B2S 19:52
PROVIDERS: ADMIT Psychiatry & Neurology Psychiatry; ATTEND Psychiatry & Neurology Psychiatry
DX: F25.1 Schizoaffective disorder, depressive type (principal); E11.65 Type 2 diabetes mellitus with hyperglycemia; R56.9 Unspecified convulsions; Z59.00 Homelessness unspecified; F10.229 Alcohol dependence with intoxication, unspecified; F17.210 Nicotine dependence, cigarettes, uncomplicated; Z68.37 Body mass index [BMI] 37.0-37.9, adult; E66.9 Obesity, unspecified; E78.5 Hyperlipidemia, unspecified; K21.9 Gastro-esophageal reflux disease without esophagitis; Y90.8 Blood alcohol level of 240 mg/100 ml or more; Z20.822 Contact with and (suspected) exposure to COVID-19; Z65.3 Problems related to other legal circumstances; Z79.899 Other long term (current) drug therapy; Z79.84 Long term (current) use of oral hypoglycemic drugs; Z79.82 Long term (current) use of aspirin; Z79.4 Long term (current) use of insulin; Z91.51 Personal history of suicidal behavior
CPT/HCPCS: 80053; 80061; 80178; 80307; 81001; 82962; 83036; 84132; 84443; 85025; 87081; 93005; 99285; G0480; J3420